=== PATIENT | male | born 1945 | race African-American/Black ===

== ENCOUNTER 2016-11-27 14:07 | Emergency (ER) | payer MEDICARE, OTHER ==
[~2016-11-27] VITALS: Ht 188 cm; Wt 102.1 kg
[~2016-11-27 14:07] MED LIST: ALFU10TA3 PO; LISI-334 PO
[2016-11-27 15:37] LABS: OBC FLU VALID
[2016-11-27] MEDS ORDERED: IV NORMAL SALINE 1000ML BAG 1,000 ML IV SCH (15:38)
[2016-11-27] MEDS ORDERED: PROCHLORPERAZINE 10 MG/2 ML VIAL. IV ONE (15:45)
--- NOTE | 2016-11-27 15:46 | PHYS DOC ---
Past Medical History Past Medical History: GI Bleed, Hypertension, Other Additional Past Medical Histor: BPH Past Surgical History: Tonsillectomy, Other Additional Past Surgical Histo: bowell resection; polyp removal; ear sx; left knee; lumbar sx Alcohol Use: None Drug Use: None Adult General Chief Complaint Chief Complaint: FLU SYMPTOM HPI HPI Patient is a 71 year old male who presents with cough that started 4 days ago. Patient states that he hadn't cough, sore throat, and body aches which started 4 days ago. Patient states over the last 24 hours he has had worsening shortness of breath and hiccups. Patient states that he has been having worsening nausea associated with his symptoms but has not had any vomiting. Patient denies fevers, chest pain, or abdominal pain. The patient has not taken any medications to help with symptoms. It worsening symptoms the patient came to the emergency department for evaluation. Patient denies any history of asthma or COPD and denies any known heart problems. Patient follows a Dr. Syed for primary care. Patient states that his cough has been productive of green sputum. Patient also states that he has had history of "irregular heartbeat." Review of Systems Review of Systems Constitutional: Body aches, denies fever [] Eyes: Denies change in visual acuity, redness, or eye pain [] HENT: Sore throat, nasal congestion [] Respiratory: Shortness of breath, productive cough, hiccups [] Cardiovascular: Denies chest pain or edema [] GI: Nausea, denies abdominal pain, vomiting, bloody stools or diarrhea [] : Denies dysuria or hematuria [] Musculoskeletal: Denies back pain or joint pain [] Integument: Denies rash or skin lesions [] Neurologic: Denies headache, focal weakness or sensory changes [] Current Medications Current Medications Current Medications Medications (Trade) Dose Ordered Sig/Ramakrishna Start Time Stop Time Status Last Admin Dose Admin Prochlorperazine Edisylate (Compazine) 10 mg 1X ONCE 11/27/16 15:45 11/27/16 15:46 DC 11/27/16 16:02 10 MG Sodium Chloride (Iv Sodium Chloride 0.9% 1000ml Bag) 1,000 ml @ 1,000 mls/hr Q1H 11/27/16 15:38 11/27/16 16:37 DC 11/27/16 16:02 1,000 MLS/HR Allergies Allergies Allergies Coded Allergies Type Severity Reaction Last Updated Verified NSAIDS (Non-Steroidal Anti-Inflamma Adverse Reaction Unknown BLEEDING 01/27/14 Yes Physical Exam Physical Exam Constitutional: Alert, afebrile, appears in mild discomfort. [] HENT: Normocephalic, atraumatic, bilateral external ears normal, oropharynx moist, no oral exudates, nose normal. [] Eyes: PERRLA, EOMI, conjunctiva normal, no discharge. [] Neck: Normal range of motion, no tenderness, supple, no stridor. [] Cardiovascular: Regular rhythm, normal rate, no murmur [] Lungs & Thorax: Bilateral breath sounds clear to auscultation [] Abdomen: Bowel sounds normal, soft, no tenderness, no masses, no pulsatile masses. [] Skin: Warm, dry, no erythema, no rash. [] Back: No tenderness, no CVA tenderness. [] Extremities: No tenderness, no cyanosis, no clubbing, ROM intact, no edema. [] Neurologic: Alert and oriented X 3, normal motor function, normal sensory function, no focal deficits noted. [] Current Patient Data Vital Signs Vital Signs Date Time Temp Pulse Resp B/P Pulse Ox O2 Delivery O2 Flow Rate FiO2 11/27/16 16:08 70 20 134/69 94 11/27/16 14:58 97.4 Room Air 97.4 Lab Values Laboratory Tests Test 11/27/16 15:08 11/27/16 16:05 Influenza Type A Antigen Negative (NEGATIVE) Influenza Type B Antigen Negative (NEGATIVE) White Blood Count 7.2x10^3/uL (4.0-11.0) Red Blood Count 3.85x10^6/uL (4.30-5.70) L Hemoglobin 13.2g/dL (13.0-17.5) Hematocrit 40.8% (39.0-53.0) Mean Corpuscular Volume 106fL (79-100) H Mean Corpuscular Hemoglobin 34pg (25-35) Mean Corpuscular Hemoglobin Concent 32g/dL (31-37) Red Cell Distribution Width 13.3% (11.5-14.5) Platelet Count 150x10^3/uL (140-400) Neutrophils (%) (Auto) 69% (31-73) Lymphocytes (%) (Auto) 16% (24-48) L Monocytes (%) (Auto) 9% (0-9) Eosinophils (%) (Auto) 5% (0-3) H Basophils (%) (Auto) 0% (0-3) Neutrophils # (Auto) 4.9x10^3uL (1.8-7.7) Lymphocytes # (Auto) 1.2x10^3/uL (1.0-4.8) Monocytes # (Auto) 0.7x10^3/uL (0.0-1.1) Eosinophils # (Auto) 0.3x10^3/uL (0.0-0.7) Basophils # (Auto) 0.0x10^3/uL (0.0-0.2) Sodium Level 138mmol/L (136-145) Potassium Level 4.6mmol/L (3.5-5.1) Chloride Level 102mmol/L (98-107) Carbon Dioxide Level 25mmol/L (21-32) Anion Gap 11 (6-14) Blood Urea Nitrogen 35mg/dL (8-26) H Creatinine 2.7mg/dL (0.7-1.3) H Estimated GFR (Cockcroft-Gault) 28.3 BUN/Creatinine Ratio 13 (6-20) Glucose Level 127mg/dL (70-99) H Calcium Level 9.0mg/dL (8.5-10.1) Total Bilirubin 0.7mg/dL (0.2-1.0) Aspartate Amino Transferase (AST) 24U/L (15-37) Alanine Aminotransferase (ALT) 19U/L (16-63) Alkaline Phosphatase 82U/L (46-116) Creatine Kinase 282U/L (39-308) Creatine Kinase MB (Mass) 2.1ng/mL (0.0-3.6) Creatine Kinase MB Relative Index 0.7% (0-4) Troponin I Quantitative < 0.017ng/mL (0.000-0.055) VG-Yyv-J-Type Natriuretic Peptide 54pg/mL (0-124) Total Protein 8.5g/dL (6.4-8.2) H Albumin 3.6g/dL (3.4-5.0) Albumin/Globulin Ratio 0.7 (1.0-1.7) L Laboratory Tests 11/27/16 16:05 Laboratory Tests 11/27/16 16:05 EKG EKG Rhythm strip shows heart rate of 68, bigeminy EKG interpreted by me: Heart rate 68, bigeminy, normal axis, no acute ST/T-wave abnormalities present [] Radiology/Procedures Radiology/Procedures [facility] [address] [place] [address] IMAGING REPORT Signed PATIENT: IRIS KULKARNI ACCOUNT: [id number] : 1945 LOCATION: ER AGE: 71 SEX: M EXAM STATUS: REG ER ORD. PHYSICIAN: ZACH SOTO MD REASON: shortness of breath, cough since last night PROCEDURE: PORTABLE CHEST 1V Portable chest, 11/27/2016: History: Shortness of breath, cough Comparison is made to a study from 10/31/2015. The heart size and pulmonary vascularity are normal. No pulmonary infiltrates are seen. There is no evidence of pleural fluid. IMPRESSION: No acute cardiopulmonary abnormality is detected. DICTATED and SIGNED BY: LEON HAN MD DATE: 11/27/16 1612 CC: ZACH SOTO MD; EFRAÍN RUELAS MD ~ [] Course & Med Decision Making Course & Med Decision Making Pertinent Labs and Imaging studies reviewed. (See chart for details) The patient was given Compazine with improvement in symptoms. Patient also given IV fluids. The patient's blood work did not reveal any remarkable of results. 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 Patient is not having any chest pain currently. Patient's influenza test was negative. The patient's symptoms appear consistent with a viral upper respiratory infection. The patient will continue on promethazine with codeine syrup for cough and hiccups. Advised follow-up in the next 2 days with the patient's primary physician and return to the emergency department for any worsening symptoms. Patient voiced understanding and in agreement with treatment plan. Dragon Disclaimer Dragon Disclaimer This electronic medical record was generated, in whole or in part, using a voice recognition dictation system. Departure Departure Impression: Primary Impression: Upper respiratory infection Additional Impression: Hiccups Disposition: 01 HOME, SELF-CARE Condition: IMPROVED Referrals: EFRAÍN RUELAS MD (PCP) Patient Instructions: Hiccups, Upper Respiratory Infection, Adult Additional Instructions: Follow-up with primary doctor in 2 days. Return to the emergency department for any worsening symptoms. Scripts Promethazine HCl/Codeine (Prometh-Codein 6.25-10 mg/5 ml)5 Ml Syrup5 Ml PO Q6HRS PRN COUGH #120 Prov:ZACH SOTO MD 11/27/16 Problem Qualifiers Primary Impression: Upper respiratory infection URI type: unspecified URI Qualified Code: J06.9 - Acute upper respiratory infection, unspecified ZACH SOTO MD Nov 27, 2016 15:46
--- NOTE | 2016-11-27 16:15 | RAD ---
Portable chest, 11/27/2016: History: Shortness of breath, cough Comparison is made to a study from 10/31/2015. The heart size and pulmonary vascularity are normal. No pulmonary infiltrates are seen. There is no evidence of pleural fluid. IMPRESSION: No acute cardiopulmonary abnormality is detected.
[2016-11-27 16:34] LABS: BASO % 0 % (0-3); EOS % 5 % (0-3); HEMATOCRIT 40.8 % (39.0-53.0); HEMOGLOBIN 13.2 g/dL (13.0-17.5); LYMPH # 1.2 x10^3/uL (1.0-4.8); LYMPH % 16 % (24-48); MEAN CORPUSCULAR HEMOGLOBIN 34 pg (25-35); MEAN CORPUSCULAR HGB CONC 32 g/dL (31-37); MEAN CORPUSCULAR VOLUME 106 fL (79-100); MONO % 9 % (0-9); NEUT % 69 % (31-73); PLATELET COUNT 150 x10^3/uL (140-400); RED BLOOD COUNT 3.85 x10^6/uL (4.30-5.70); RED CELL DISTRIBUTION WIDTH 13.3 % (11.5-14.5); WHITE BLOOD COUNT 7.2 x10^3/uL (4.0-11.0)
[2016-11-27 17:04] LABS: CREATININE 2.7 mg/dL (0.7-1.3); GFR 28.3; POTASSIUM 4.6 mmol/L (3.5-5.1)
[2016-11-27 17:06] LABS: ALBUMIN 3.6 g/dL (3.4-5.0); ALBUMIN/GLOBULIN RATIO 0.7 (1.0-1.7); TOTAL BILIRUBIN 0.7 mg/dL (0.2-1.0); TOTAL PROTEIN 8.5 g/dL (6.4-8.2)
[2016-11-27 17:11] LABS: CKMB INDEX 0.7 % (0-4); CKMB MASS 2.1 ng/mL (0.0-3.6)
[2016-11-27] MEDS ORDERED: PROM5SYR2 PO (17:36)
[2016-11-27 17:39] VITALS: BP 138/69
--- NOTE | 2016-11-28 06:44 | EKG ---
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
== END 2016-11-27 18:00 | disposition home or self-care (01) ==
LOC: ER 14:07
DX: J06.9 Acute upper respiratory infection, unspecified (principal); R06.6 Hiccough; I10 Essential (primary) hypertension; N40.0 Benign prostatic hyperplasia without lower urinary tract symptoms; Z88.6 Allergy status to analgesic agent
CPT/HCPCS: 36415; 71010; 80053; 82553; 83880; 84484; 85027; 87804; 93005; 96361; 96374; 99285; J0780; J7030

== ENCOUNTER → 2017-07-01 | Outpatient (CLI) | payer MEDICARE, OTHER ==
[~2017-07-01] MED LIST changes: +PROM5SYR2 PO
[2017-07-01 13:21] LABS: BASO % 1 % (0-3); EOS % 10 % (0-3); HEMATOCRIT 39.4 % (39.0-53.0); HEMOGLOBIN 12.9 g/dL (13.0-17.5); LYMPH # 1.5 x10^3/uL (1.0-4.8); LYMPH % 25 % (24-48); MEAN CORPUSCULAR HEMOGLOBIN 35 pg (25-35); MEAN CORPUSCULAR HGB CONC 33 g/dL (31-37); MEAN CORPUSCULAR VOLUME 107 fL (79-100); MONO % 8 % (0-9); NEUT % 57 % (31-73); PLATELET COUNT 165 x10^3/uL (140-400); RED BLOOD COUNT 3.68 x10^6/uL (4.30-5.70); RED CELL DISTRIBUTION WIDTH 13.2 % (11.5-14.5)
[2017-07-01 13:37] LABS: ALBUMIN 3.4 g/dL (3.4-5.0); CALCIUM 8.9 mg/dL (8.5-10.1); CREATININE 2.5 mg/dL (0.7-1.3); GFR 30.9; PHOSPHORUS 3.7 mg/dL (2.6-4.7); POTASSIUM 4.7 mmol/L (3.5-5.1)
[2017-07-02 06:19] LABS: PTH INTACT 70 pg/mL (15-65)
== END | disposition home or self-care (01) ==
LOC: LAB 12:54
PROVIDERS: ATTEND Internal Medicine Nephrology
DX: I12.9 Hypertensive chronic kidney disease with stage 1 through stage 4 chronic kidney disease, or unspecified chronic kidney disease (principal); N18.3 Chronic kidney disease, stage 3 (moderate); Z68.31 Body mass index [BMI] 31.0-31.9, adult
CPT/HCPCS: 36415; 80069; 83970; 85025

== ENCOUNTER 2017-11-03 13:00 | Emergency (ER) | payer MEDICARE ==
[2017-11-03] MEDS: oxyCODONE/APAP 5/325 1 TAB TABLET PO (13:44)
[2017-11-03] MEDS: DIPHTH,PERTUSS(ACELL),TET TOX 0.5 ML DISP.SYRIN. VAX IM (13:45)
== END 2017-11-03 15:17 | disposition home or self-care (01) ==
LOC: ER 13:00
DX: S51.811A Laceration without foreign body of right forearm, initial encounter (principal); I10 Essential (primary) hypertension; N40.0 Benign prostatic hyperplasia without lower urinary tract symptoms; G47.30 Sleep apnea, unspecified; Z88.6 Allergy status to analgesic agent; W10.9XXA Fall (on) (from) unspecified stairs and steps, initial encounter; Y93.01 Activity, walking, marching and hiking; Y92.009 Unspecified place in unspecified non-institutional (private) residence as the place of occurrence of the external cause; Y99.8 Other external cause status
CPT/HCPCS: 73090; 90471; 90715; 99284-25

== ENCOUNTER → 2018-01-08 | Outpatient (CLI) | payer MEDICARE, OTHER | END | disposition home or self-care (01) | LOC: RAD 09:58 | DX: M19.011 Primary osteoarthritis, right shoulder (principal) | CPT/HCPCS: 73030 ==

== ENCOUNTER → 2018-01-15 | Outpatient (CLI) | payer MEDICARE, OTHER ==
[2018-01-15 14:45] LABS: ADD MAN DIFF? NO
[2018-01-15 14:51] LABS: BASO % 0 % (0-3); EOS # 0.2 x10^3/uL (0.0-0.7); EOS % 3 % (0-3); HEMATOCRIT 43.6 % (39.0-53.0); HEMOGLOBIN 14.5 g/dL (13.0-17.5); LYMPH # 1.4 x10^3/uL (1.0-4.8); LYMPH % 19 % (24-48); MEAN CORPUSCULAR HEMOGLOBIN 34 pg (25-35); MEAN CORPUSCULAR HGB CONC 33 g/dL (31-37); MEAN CORPUSCULAR VOLUME 103 fL (79-100); MONO # 0.5 x10^3/uL (0.0-1.1); MONO % 7 % (0-9); NEUT # 5.1 x10^3uL (1.8-7.7); NEUT % 70 % (31-73); PLATELET COUNT 183 x10^3/uL (140-400); RED BLOOD COUNT 4.22 x10^6/uL (4.30-5.70); RED CELL DISTRIBUTION WIDTH 13.1 % (11.5-14.5); WHITE BLOOD COUNT 7.3 x10^3/uL (4.0-11.0)
[2018-01-15 15:10] LABS: ALBUMIN 3.3 g/dL (3.4-5.0); ANION GAP 12 (6-14); BLOOD UREA NITROGEN 35 mg/dL (8-26); CALCIUM 8.5 mg/dL (8.5-10.1); CARBON DIOXIDE 23 mmol/L (21-32); CHLORIDE 106 mmol/L (98-107); CREATININE 2.8 mg/dL (0.7-1.3); GFR 27.1; GLUCOSE 160 mg/dL (70-99); MAGNESIUM 1.9 mg/dL (1.8-2.4); PHOSPHORUS 3.9 mg/dL (2.6-4.7); SODIUM 141 mmol/L (136-145); URIC ACID 4.5 mg/dL (3.5-7.2)
[2018-01-15 22:15] LABS: CALCIUM PTH 8.9 mg/dL (8.6-10.2); PHOSPHORUS PTH 3.8 mg/dL (2.5-4.5); PTH INTACT 86 pg/mL (15-65); eGFR AFRICAN-AMER 29 (>59); eGFR NON AFRICAN-AMER 25 (>59)
[2018-01-18 11:18] LABS: CREAT RD UR 65.5 mg/dL (Not Estab.); MICROALB RD UR 1170.5 ug/mL (Not Estab.)
== END | disposition home or self-care (01) ==
LOC: LAB 14:21
DX: I12.9 Hypertensive chronic kidney disease with stage 1 through stage 4 chronic kidney disease, or unspecified chronic kidney disease (principal); N18.3 Chronic kidney disease, stage 3 (moderate); Z68.30 Body mass index [BMI] 30.0-30.9, adult
CPT/HCPCS: 36415; 80069; 82043; 82570; 83735; 83970; 84550; 85025

== ENCOUNTER → 2018-04-08 | Outpatient (CLI) | payer MEDICARE, OTHER | END | disposition home or self-care (01) | LOC: MRI 14:56 | DX: M75.101 Unspecified rotator cuff tear or rupture of right shoulder, not specified as traumatic (principal); M19.011 Primary osteoarthritis, right shoulder | CPT/HCPCS: 73221 ==

== ENCOUNTER → 2018-04-30 | Outpatient (CLI) | payer MEDICARE, OTHER ==
[2018-04-30 10:37] LABS: ADD MAN DIFF? NO
[2018-04-30 10:50] LABS: BASO % 1 % (0-3); BILIRUBIN,URINE NEGATIVE (NEG); CLARITY,URINE CLEAR; COLOR,URINE YELLOW; EOS # 0.3 x10^3/uL (0.0-0.7); EOS % 5 % (0-3); GLUCOSE,URINE NEGATIVE (NEG); HEMOGLOBIN 13.5 g/dL (13.0-17.5); LYMPH # 1.4 x10^3/uL (1.0-4.8); LYMPH % 22 % (24-48); MEAN CORPUSCULAR HEMOGLOBIN 35 pg (25-35); MEAN CORPUSCULAR HGB CONC 34 g/dL (31-37); MEAN CORPUSCULAR VOLUME 105 fL (79-100); MONO # 0.5 x10^3/uL (0.0-1.1); MONO % 8 % (0-9); NEUT # 4.2 x10^3uL (1.8-7.7); NEUT % 65 % (31-73); NITRITE,URINE NEGATIVE (NEG); PLATELET COUNT 183 x10^3/uL (140-400); PROTEIN,URINE 100 mg/dL (NEG-TRACE); RED BLOOD COUNT 3.81 x10^6/uL (4.30-5.70); RED CELL DISTRIBUTION WIDTH 12.9 % (11.5-14.5); WHITE BLOOD COUNT 6.5 x10^3/uL (4.0-11.0)
[2018-04-30 11:00] LABS: ALBUMIN 3.4 g/dL (3.4-5.0); ANION GAP 10 (6-14); BLOOD UREA NITROGEN 40 mg/dL (8-26); CALCIUM 8.5 mg/dL (8.5-10.1); CARBON DIOXIDE 25 mmol/L (21-32); CHLORIDE 108 mmol/L (98-107); CREATININE 2.7 mg/dL (0.7-1.3); GFR 28.2; GLUCOSE 125 mg/dL (70-99); MAGNESIUM 1.8 mg/dL (1.8-2.4); PHOSPHORUS 3.5 mg/dL (2.6-4.7); POTASSIUM 3.9 mmol/L (3.5-5.1); SODIUM 143 mmol/L (136-145); URIC ACID 6.3 mg/dL (3.5-7.2)
[2018-04-30 11:29] LABS: RBC,URINE RARE /HPF (0-2); WBC,URINE RARE /HPF (0-4)
[2018-04-30 11:30] LABS: BACTERIA,URINE FEW /HPF (0-FEW); SQUAMOUS EPITHELIAL CELL,UR OCC /LPF
[2018-04-30 22:13] LABS: CALCIUM PTH 8.9 mg/dL (8.6-10.2); CREATININE PTH 2.67 mg/dL (0.76-1.27); PHOSPHORUS PTH 3.5 mg/dL (2.5-4.5); PTH INTACT 61 pg/mL (15-65); eGFR AFRICAN-AMER 26 (>59); eGFR NON AFRICAN-AMER 23 (>59)
== END | disposition home or self-care (01) ==
LOC: LAB 10:15
DX: I12.9 Hypertensive chronic kidney disease with stage 1 through stage 4 chronic kidney disease, or unspecified chronic kidney disease (principal); N18.3 Chronic kidney disease, stage 3 (moderate); N17.9 Acute kidney failure, unspecified; Z68.29 Body mass index [BMI] 29.0-29.9, adult
CPT/HCPCS: 36415; 80069; 81001; 83735; 83970; 84550; 85025

== ENCOUNTER → 2018-07-22 | Outpatient (CLI) | payer MEDICARE, OTHER ==
[2017-11-03 13:09] VITALS: BP 205/95
[~2018-07-22] MED LIST changes: +OXYC-323 PO
--- NOTE | 2018-07-22 10:51 | RAD ---
3 views left shoulder 07/22/2018 10:30 AM Indication: LT SHOULDER PAIN, LUMP ON SUPERIOR LT SHOULDER ABOVE DISTAL CLAVICLE. NO KNOWN INJURY Comparison: None available Findings: No evidence of acute fracture or dislocation seen. Mild arthritic changes are noted at the acromioclavicular joint. No acute soft tissue changes are identified. IMPRESSION: Mild degenerative changes without evidence of acute osseous abnormality Electronically signed by: Olvin Dooley MD (07/22/2018 10:48 AM) [id number]
--- NOTE | 2018-07-22 11:00 | RAD ---
MRI Lumbar Spine without contrast History: Chronic low back pain,worsening leg radiculopathy, history of surgery Technique: Multiplanar, multi sequential noncontrast MR imaging was performed of the lumbar spine. Contrast: None Comparison: None Findings: Lumbar vertebral body stature and AP alignment are maintained. There is advanced narrowing of the L4-5 intervertebral disc space, mild degenerative disc disease at L2-3 and mild disc desiccation L3-4 and L5-S1. There is minimal edema associated with the anterior corners at L2-3 likely reactive/degenerative in etiology. Conus terminates at L2. L2-L3: There is mild buckling of the ligamentum flavum and facet hypertrophic change. Neural foramina and spinal canal are adequate. L3-L4: There is moderate to severe buckling of the ligamentum flavum and moderate facet hypertrophic change. There is a synovial cyst in the posterior central aspect of the spinal canal about 0.8 cm AP by 0.4 cm transverse by 1.2 cm cc. Combination of findings results in fairly severe spinal stenosis with limited preserved subarachnoid space, narrowing primarily from posteriorly. There is negligible disc osteophyte complex and bulge. There is mild neural foramina compromise bilaterally greater from posteriorly. L4-L5: There is left laminectomy defect. There is mild buckling of the ligamentum flavum on the right. There is moderate right and mild left facet hypertrophic change. There is negligible disc osteophyte complex. There is mild narrowing of the right neural foramen primarily from posteriorly although also inferior disc osteophyte complex. Left neural foramen is overall adequate. L5-S1: There is moderate to severe right and mild to moderate left facet hypertrophic change. There is mild buckling of the ligamentum flavum. There is mild to moderate narrowing of the left neural foramen. There is moderate narrowing greater distally of the right, also probable small right extraforaminal protrusion or extrusion with contact of the extraforaminal right L5 nerve root. IMPRESSION: 1. There is fairly severe spinal stenosis with limited preserved subarachnoid space at L3-4 from posteriorly due to facet hypertrophic change, buckling of the ligamentum flavum. 2. There is more advanced narrowing of the L4-5 intervertebral disc space, other minimal degenerative disc disease. 3. There is neural foramina compromise as stated greatest bilaterally at L5-S1, minimally at other levels. Electronically signed by: Piero Mccullough MD (07/22/2018 10:57 AM) [id number]
== END | disposition home or self-care (01) ==
LOC: MRI 09:18
PROVIDERS: ATTEND Nurse Practitioner
DX: M51.36 Other intervertebral disc degeneration, lumbar region (principal); M48.061 Spinal stenosis, lumbar region without neurogenic claudication; M25.78 Osteophyte, vertebrae; M19.012 Primary osteoarthritis, left shoulder
CPT/HCPCS: 72148; 73030

== ENCOUNTER → 2018-10-13 | Outpatient (CLI) | payer MEDICARE, OTHER ==
[2017-11-03 13:09] VITALS: BP 205/95
[~2018-10-13] MED LIST changes: -OXYC-323 PO; +OXYC1TAB15 PO
[2018-10-13 12:30] LABS: BASO % 1 % (0-3); EOS # 0.4 x10^3/uL (0.0-0.7); EOS % 7 % (0-3); HEMATOCRIT 38.7 % (39.0-53.0); HEMOGLOBIN 13.6 g/dL (13.0-17.5); LYMPH # 1.6 x10^3/uL (1.0-4.8); LYMPH % 25 % (24-48); MEAN CORPUSCULAR HEMOGLOBIN 37 pg (25-35); MEAN CORPUSCULAR HGB CONC 35 g/dL (31-37); MEAN CORPUSCULAR VOLUME 106 fL (79-100); MONO # 0.5 x10^3/uL (0.0-1.1); MONO % 8 % (0-9); NEUT # 3.7 x10^3uL (1.8-7.7); NEUT % 59 % (31-73); PLATELET COUNT 193 x10^3/uL (140-400); RED BLOOD COUNT 3.66 x10^6/uL (4.30-5.70); RED CELL DISTRIBUTION WIDTH 12.7 % (11.5-14.5); WHITE BLOOD COUNT 6.3 x10^3/uL (4.0-11.0)
[2018-10-13 12:39] LABS: BILIRUBIN,URINE NEGATIVE (NEG); CLARITY,URINE CLEAR; COLOR,URINE YELLOW; NITRITE,URINE NEGATIVE (NEG); PH,URINE 5.5; PROTEIN,URINE 100 mg/dL (NEG-TRACE); UROBILINOGEN,URINE 0.2 mg/dL (0.2 mg/dL)
[2018-10-13 12:49] LABS: ALBUMIN 3.6 g/dL (3.4-5.0); POTASSIUM 4.6 mmol/L (3.5-5.1); URIC ACID 10.1 mg/dL (3.5-7.2)
[2018-10-13 12:52] LABS: HYALINE CASTS, URINE FEW /HPF
[2018-10-13 12:53] LABS: BACTERIA,URINE 0 /HPF (0-FEW); RBC,URINE 0 /HPF (0-2); SQUAMOUS EPITHELIAL CELL,UR OCC /LPF; WBC,URINE OCC /HPF (0-4)
[2018-10-13 13:05] LABS: CALCIUM 9.4 mg/dL (8.5-10.1); CREATININE 2.8 mg/dL (0.7-1.3)
[2018-10-13 22:10] LABS: CALCIUM PTH 9.2 mg/dL (8.6-10.2); CREATININE PTH 2.57 mg/dL (0.76-1.27); PHOSPHORUS PTH 3.1 mg/dL (2.5-4.5); PTH INTACT 71 pg/mL (15-65)
== END | disposition home or self-care (01) ==
LOC: LAB 11:51
DX: I12.9 Hypertensive chronic kidney disease with stage 1 through stage 4 chronic kidney disease, or unspecified chronic kidney disease (principal); N18.3 Chronic kidney disease, stage 3 (moderate); N17.9 Acute kidney failure, unspecified; Z68.29 Body mass index [BMI] 29.0-29.9, adult
CPT/HCPCS: 36415; 80069; 81001; 83735; 83970; 84550; 85025

== ENCOUNTER → 2019-04-15 | Outpatient (CLI) | payer MEDICARE, OTHER ==
[2017-11-03 13:09] VITALS: BP 205/95
[2019-04-15 14:37] LABS: BASO % 1 % (0-3); EOS # 0.5 x10^3/uL (0.0-0.7); EOS % 8 % (0-3); HEMATOCRIT 38.1 % (39.0-53.0); HEMOGLOBIN 12.7 g/dL (13.0-17.5); LYMPH # 1.3 x10^3/uL (1.0-4.8); LYMPH % 25 % (24-48); MEAN CORPUSCULAR HEMOGLOBIN 35 pg (25-35); MEAN CORPUSCULAR HGB CONC 33 g/dL (31-37); MEAN CORPUSCULAR VOLUME 106 fL (79-100); MONO # 0.6 x10^3/uL (0.0-1.1); MONO % 10 % (0-9); NEUT # 3.1 x10^3uL (1.8-7.7); NEUT % 56 % (31-73); PLATELET COUNT 182 x10^3/uL (140-400); RED BLOOD COUNT 3.61 x10^6/uL (4.30-5.70); RED CELL DISTRIBUTION WIDTH 12.8 % (11.5-14.5); WHITE BLOOD COUNT 5.5 x10^3/uL (4.0-11.0)
[2019-04-15 15:07] LABS: ALBUMIN 3.8 g/dL (3.4-5.0); CALCIUM 8.7 mg/dL (8.5-10.1); CREATININE 2.7 mg/dL (0.7-1.3); GFR 28.1; PHOSPHORUS 3.7 mg/dL (2.6-4.7); POTASSIUM 4.7 mmol/L (3.5-5.1)
[2019-04-16 01:10] LABS: CALCIUM PTH 9.1 mg/dL (8.6-10.2); CREATININE PTH 2.47 mg/dL (0.76-1.27); PHOSPHORUS PTH 3.5 mg/dL (2.5-4.5); PTH INTACT 89 pg/mL (15-65)
== END | disposition home or self-care (01) ==
LOC: LAB 13:59
PROVIDERS: ATTEND Internal Medicine Nephrology
DX: I12.9 Hypertensive chronic kidney disease with stage 1 through stage 4 chronic kidney disease, or unspecified chronic kidney disease (principal); N18.4 Chronic kidney disease, stage 4 (severe)
CPT/HCPCS: 36415; 80069; 83970; 85025

== ENCOUNTER → 2019-09-02 | Outpatient (CLI) | payer MEDICARE, OTHER ==
[2019-05-07 15:00] VITALS: BP 150/85
[~2019-09-02] MED LIST changes: +LOSA50TA15 PO
[2019-09-02 12:04] LABS: CALCIUM 8.4 mg/dL (8.5-10.1); CREATININE 2.9 mg/dL (0.7-1.3); GFR 25.9; PHOSPHORUS 2.8 mg/dL (2.6-4.7); POTASSIUM 4.7 mmol/L (3.5-5.1)
[2019-09-02 12:06] LABS: ALBUMIN 3.6 g/dL (3.4-5.0)
== END | disposition home or self-care (01) ==
LOC: LAB 11:31
PROVIDERS: ATTEND Internal Medicine Nephrology
DX: I12.9 Hypertensive chronic kidney disease with stage 1 through stage 4 chronic kidney disease, or unspecified chronic kidney disease (principal); N18.4 Chronic kidney disease, stage 4 (severe)
CPT/HCPCS: 36415; 80069; 83735

== ENCOUNTER → 2019-12-19 | Outpatient (CLI) | payer MEDICARE, OTHER ==
[2019-05-07 15:00] VITALS: BP 150/85
[~2019-12-19] MED LIST changes: -ALFU10TA3 PO; +ALFU10TA4 PO
[2019-12-19 15:23] LABS: BASO % 0 % (0-3); EOS # 0.4 x10^3/uL (0.0-0.7); EOS % 9 % (0-3); HEMATOCRIT 39.7 % (39.0-53.0); HEMOGLOBIN 13.4 g/dL (13.0-17.5); LYMPH # 1.5 x10^3/uL (1.0-4.8); LYMPH % 29 % (24-48); MEAN CORPUSCULAR HEMOGLOBIN 35 pg (25-35); MEAN CORPUSCULAR HGB CONC 34 g/dL (31-37); MEAN CORPUSCULAR VOLUME 104 fL (79-100); MONO # 0.4 x10^3/uL (0.0-1.1); MONO % 9 % (0-9); NEUT # 2.7 x10^3/uL (1.8-7.7); NEUT % 53 % (31-73); PLATELET COUNT 184 x10^3/uL (140-400); RED CELL DISTRIBUTION WIDTH 12.4 % (11.5-14.5)
[2019-12-19 15:24] LABS: BILIRUBIN,URINE NEGATIVE (NEG); CLARITY,URINE CLEAR; NITRITE,URINE NEGATIVE (NEG); PROTEIN,URINE 100 mg/dL (NEG-TRACE); UROBILINOGEN,URINE 0.2 mg/dL (0.2 mg/dL)
[2019-12-19 15:32] LABS: COLOR,URINE STRAW; CREATININE,RANDOM URINE 96.1 mg/dL (Not Establ.)
[2019-12-19 15:33] LABS: BACTERIA,URINE 0 /HPF (0-FEW); RBC,URINE 0 /HPF (0-2); SQUAMOUS EPITHELIAL CELL,UR FEW /LPF; WBC,URINE 0 /HPF (0-4)
[2019-12-19 15:46] LABS: ALBUMIN 3.4 g/dL (3.4-5.0); CALCIUM 8.3 mg/dL (8.5-10.1); CREATININE 2.6 mg/dL (0.7-1.3); GFR 29.3; MAGNESIUM 1.9 mg/dL (1.8-2.4); PHOSPHORUS 3.5 mg/dL (2.6-4.7); POTASSIUM 4.2 mmol/L (3.5-5.1); URIC ACID 7.3 mg/dL (3.5-7.2)
[2019-12-20 12:10] LABS: CALCIUM PTH 8.8 mg/dL (8.6-10.2); CREATININE PTH 2.49 mg/dL (0.76-1.27); PHOSPHORUS PTH 3.6 mg/dL (2.8-4.1); PTH INTACT 117 pg/mL (15-65)
== END ==
LOC: LAB 14:50
PROVIDERS: ATTEND Nurse Practitioner Family
DX: I12.9 Hypertensive chronic kidney disease with stage 1 through stage 4 chronic kidney disease, or unspecified chronic kidney disease (principal); N18.3 Chronic kidney disease, stage 3 (moderate); Z68.30 Body mass index [BMI] 30.0-30.9, adult
CPT/HCPCS: 36415; 80069; 81001; 82570; 83735; 83970; 84156; 84550; 85025

== ENCOUNTER → 2020-06-14 | Outpatient (CLI) | payer MEDICARE, OTHER ==
[2019-05-07 15:00] VITALS: BP 150/85
[2020-06-14 14:41] LABS: BASO % 1 % (0-3); EOS # 0.3 x10^3/uL (0.0-0.7); EOS % 7 % (0-3); HEMATOCRIT 37.6 % (39.0-53.0); HEMOGLOBIN 12.8 g/dL (13.0-17.5); LYMPH # 1.2 x10^3/uL (1.0-4.8); LYMPH % 25 % (24-48); MEAN CORPUSCULAR HEMOGLOBIN 35 pg (25-35); MEAN CORPUSCULAR HGB CONC 34 g/dL (31-37); MEAN CORPUSCULAR VOLUME 102 fL (79-100); MONO # 0.5 x10^3/uL (0.0-1.1); MONO % 10 % (0-9); NEUT # 2.8 x10^3/uL (1.8-7.7); NEUT % 58 % (31-73); PLATELET COUNT 188 x10^3/uL (140-400); RED CELL DISTRIBUTION WIDTH 12.7 % (11.5-14.5); WHITE BLOOD COUNT 4.9 x10^3/uL (4.0-11.0)
[2020-06-14 15:20] LABS: ALBUMIN 3.5 g/dL (3.4-5.0); CALCIUM 8.1 mg/dL (8.5-10.1); CREATININE 3.2 mg/dL (0.7-1.3); PHOSPHORUS 3.9 mg/dL (2.6-4.7); POTASSIUM 4.9 mmol/L (3.5-5.1)
[2020-06-15 01:09] LABS: CALCIUM PTH 8.6 mg/dL (8.6-10.2); CREATININE PTH 3.02 mg/dL (0.76-1.27); PHOSPHORUS PTH 3.8 mg/dL (2.8-4.1); PTH INTACT 133 pg/mL (15-65)
== END | disposition home or self-care (01) ==
LOC: LAB 14:20
PROVIDERS: ATTEND Internal Medicine Nephrology
DX: I12.9 Hypertensive chronic kidney disease with stage 1 through stage 4 chronic kidney disease, or unspecified chronic kidney disease (principal); N18.4 Chronic kidney disease, stage 4 (severe); N52.9 Male erectile dysfunction, unspecified; Z68.31 Body mass index [BMI] 31.0-31.9, adult
CPT/HCPCS: 36415; 80069; 83970; 85025

== ENCOUNTER → 2020-08-17 | Outpatient (CLI) | payer MEDICARE, OTHER ==
[2019-05-07 15:00] VITALS: BP 150/85
[2020-08-17 12:14] LABS: ALBUMIN 3.7 g/dL (3.4-5.0); CALCIUM 8.8 mg/dL (8.5-10.1); CREATININE 3.2 mg/dL (0.7-1.3); PHOSPHORUS 3.5 mg/dL (2.6-4.7); POTASSIUM 4.9 mmol/L (3.5-5.1)
== END ==
LOC: LAB 11:43
PROVIDERS: ATTEND Nurse Practitioner Family
DX: N18.4 Chronic kidney disease, stage 4 (severe) (principal); E21.1 Secondary hyperparathyroidism, not elsewhere classified
CPT/HCPCS: 36415; 80069

== ENCOUNTER → 2020-12-14 | Outpatient (CLI) | payer MEDICARE, OTHER ==
[2019-05-07 15:00] VITALS: BP 150/85
[~2020-12-14] MED LIST changes: -LISI-334 PO; +LISI20TA18 PO
[2020-12-14 10:58] LABS: BASO % 1 % (0-3); EOS # 0.5 x10^3/uL (0.0-0.7); EOS % 12 % (0-3); HEMATOCRIT 40.6 % (39.0-53.0); HEMOGLOBIN 13.5 g/dL (13.0-17.5); LYMPH # 1.3 x10^3/uL (1.0-4.8); LYMPH % 32 % (24-48); MEAN CORPUSCULAR HEMOGLOBIN 35 pg (25-35); MEAN CORPUSCULAR HGB CONC 33 g/dL (31-37); MEAN CORPUSCULAR VOLUME 105 fL (79-100); MONO # 0.4 x10^3/uL (0.0-1.1); MONO % 10 % (0-9); NEUT # 1.9 x10^3/uL (1.8-7.7); NEUT % 46 % (31-73); PLATELET COUNT 208 x10^3/uL (140-400); RED BLOOD COUNT 3.86 x10^6/uL (4.30-5.70); RED CELL DISTRIBUTION WIDTH 12.5 % (11.5-14.5); WHITE BLOOD COUNT 4.2 x10^3/uL (4.0-11.0)
[2020-12-14 11:13] LABS: ALBUMIN 3.6 g/dL (3.4-5.0); CALCIUM 9.1 mg/dL (8.5-10.1); CREATININE 3.1 mg/dL (0.7-1.3); GFR 23.9; PHOSPHORUS 4.2 mg/dL (2.6-4.7); POTASSIUM 5.2 mmol/L (3.5-5.1); URIC ACID 9.1 mg/dL (3.5-7.2)
[2020-12-15 02:09] LABS: CALCIUM PTH 9.7 mg/dL (8.6-10.2); CREATININE PTH 2.88 mg/dL (0.76-1.27); PHOSPHORUS PTH 4.2 mg/dL (2.8-4.1); PTH INTACT 48 pg/mL (15-65)
== END ==
LOC: LAB 10:32
PROVIDERS: ATTEND Nurse Practitioner Family
DX: N18.4 Chronic kidney disease, stage 4 (severe) (principal); E21.1 Secondary hyperparathyroidism, not elsewhere classified
CPT/HCPCS: 36415; 80069; 83970; 84550; 85025

== ENCOUNTER → 2021-06-18 | Outpatient (CLI) | payer MEDICARE, OTHER ==
[2019-05-07 15:00] VITALS: BP 150/85
[2021-06-18 10:01] LABS: BASO % 1 % (0-3); EOS # 0.3 x10^3/uL (0.0-0.7); EOS % 7 % (0-3); HEMATOCRIT 38.4 % (39.0-53.0); LYMPH # 1.2 x10^3/uL (1.0-4.8); LYMPH % 26 % (24-48); MEAN CORPUSCULAR HEMOGLOBIN 36 pg (25-35); MEAN CORPUSCULAR HGB CONC 34 g/dL (31-37); MEAN CORPUSCULAR VOLUME 105 fL (79-100); MONO # 0.4 x10^3/uL (0.0-1.1); MONO % 9 % (0-9); NEUT # 2.8 x10^3/uL (1.8-7.7); NEUT % 58 % (31-73); PLATELET COUNT 200 x10^3/uL (140-400); RED BLOOD COUNT 3.66 x10^6/uL (4.30-5.70); RED CELL DISTRIBUTION WIDTH 12.5 % (11.5-14.5); WHITE BLOOD COUNT 4.9 x10^3/uL (4.0-11.0)
[2021-06-18 10:15] LABS: ALBUMIN 3.6 g/dL (3.4-5.0); CREATININE 2.8 mg/dL (0.7-1.3); GFR 26.8; PHOSPHORUS 3.8 mg/dL (2.6-4.7); POTASSIUM 4.8 mmol/L (3.5-5.1)
[2021-06-19 01:11] LABS: CALCIUM PTH 9.2 mg/dL (8.6-10.2); CREATININE PTH 2.49 mg/dL (0.76-1.27); PHOSPHORUS PTH 3.7 mg/dL (2.8-4.1); PTH INTACT 63 pg/mL (15-65)
== END ==
LOC: LAB 09:38
PROVIDERS: ATTEND Internal Medicine Nephrology
DX: I12.9 Hypertensive chronic kidney disease with stage 1 through stage 4 chronic kidney disease, or unspecified chronic kidney disease (principal); N18.4 Chronic kidney disease, stage 4 (severe); N52.9 Male erectile dysfunction, unspecified; Z68.30 Body mass index [BMI] 30.0-30.9, adult
CPT/HCPCS: 36415; 80069; 83970; 85025